=== PATIENT | male | born 1970 | race Caucasian/White ===

== ENCOUNTER → 2018-10-26 | Outpatient (CLI) | payer OTHER ==
[~2018-10-26] MED LIST: Cleocin HCl300 MG PO; DIVA500EC PO
== END | disposition home or self-care (01) ==
LOC: LAB 17:14 → LAB SHORT 17:14
DX: L08.9 Local infection of the skin and subcutaneous tissue, unspecified (principal); B07.8 Other viral warts
CPT/HCPCS: 87070; 87205

== ENCOUNTER → 2019-08-31 | Outpatient (CLI) | payer OTHER ==
[2019-09-04 16:07] LABS: CHLAMYDIA BY NAA Negative (Negative); GONOCOCCUS BY NAA Negative (Negative)
[2019-09-04 18:57] LABS: TRICH VAG BY NAA Negative
== END ==
LOC: LAB SHORT 18:49 → LAB EV 18:49
PROVIDERS: Nurse Practitioner
DX: R30.9 Painful micturition, unspecified (principal)
CPT/HCPCS: 87491; 87591; 87661

== ENCOUNTER 2020-06-11 21:59 | Emergency (ER) | payer OTHER ==
[~2020-06-11] VITALS: Ht 195.6 cm; Wt 97.5 kg
[2020-06-12] MEDS ORDERED: IBUP600 PO (00:14)
[2020-06-12] MEDS ORDERED: CYCL10 PO (00:14)
== END 2020-06-12 00:58 | disposition home or self-care (01) ==
LOC: ER 21:59
DX: S16.1XXA Strain of muscle, fascia and tendon at neck level, initial encounter (principal); G40.909 Epilepsy, unspecified, not intractable, without status epilepticus; Z88.1 Allergy status to other antibiotic agents; Z79.899 Other long term (current) drug therapy; R59.1 Generalized enlarged lymph nodes
CPT/HCPCS: 36415; 71045; 85025; 86308; 87081; 87430; 96372; 99283-25; J1885

== ENCOUNTER 2021-05-07 18:57 | Emergency (ER) | payer OTHER ==
[~2021-05-07] VITALS: Ht 193 cm; Wt 99.8 kg
[~2021-05-07 18:57] MED LIST changes: +CYCL10 PO; +IBUP600 PO
[2021-05-07] MEDS ORDERED: LIDO700A20 TOP (22:36)
[2021-05-07] MEDS ORDERED: CYCL10 PO (22:36)
== END 2021-05-07 22:43 | disposition home or self-care (01) ==
LOC: ER 18:57
DX: M25.552 Pain in left hip (principal); Z88.1 Allergy status to other antibiotic agents; Z79.899 Other long term (current) drug therapy; G40.909 Epilepsy, unspecified, not intractable, without status epilepticus
CPT/HCPCS: 72192; 73502; 96372; 99284-25; A9270; J1885

== ENCOUNTER 2024-07-01 18:39 | Emergency (ER) | payer OTHER ==
[~2024-07-01] VITALS: Ht 193 cm; Wt 90.7 kg
[~2024-07-01 18:39] MED LIST changes: +LIDO700A20 TOP; +ONDA4ODT MM
[2024-07-01] MEDS ORDERED: Ondansetron HCl 2 MG / ML 2ML Vial IV PRN (18:50)
[2024-07-01 19:00] LABS: BASOPHILS ABSOLUTE AUTO 0.04 K/mm3 (0.00-0.23); BASOPHILS PERCENT AUTO 0 % (0-2); EOSINOPHILS ABSOLUTE AUTO 0.18 K/mm3 (0.00-0.68); EOSINOPHILS PERCENT AUTO 1 % (0-6); Hematocrit 41.8 % (37.0-53.0); Hemoglobin 13.7 g/dL (13.5-17.5); IMMATURE GRAN ABSOLUTE AUTO 0.06 K/mm3 (0.00-0.10); IMMATURE GRAN PERCENT AUTO 1 % (0-1); LYMPHOCYTES ABSOLUTE AUTO 4.45 K/mm3 (0.84-5.20); LYMPHOCYTES PERCENT AUTO 36 % (21-46); MONOCYTES ABSOLUTE AUTO 1.03 K/mm3 (0.16-1.47); MONOCYTES PERCENT AUTO 8 % (4-13); Mean Corpuscular HGB Conc 32.8 g/dL (31.5-36.5); Mean Corpuscular Volume 88 fL (80-100); Mean Platelet Volume 9.2 fL (9.1-12.4); NEUTROPHILS ABSOLUTE AUTO 6.78 K/mm3 (1.96-9.15); NEUTROPHILS PERCENT AUTO 54 % (41-73); Platelet Count 416 K/mm3 (150-400); RDW Coefficient Variation 13.7 % (11.7-14.2); RDW Standard Deviation 43.9 fL (35.1-46.3); Red Blood Cell Count 4.73 M/mm3 (4.30-5.90); White Blood Cell Count 12.54 K/mm3 (4.00-11.30)
[2024-07-01] MEDS ORDERED: NS 1,000 ML IV SCH (19:05)
[2024-07-01 19:23] LABS: Albumin/Globulin Ratio 1.1 (0.8-1.8); Bilirubin, Total 0.2 mg/dL (0.1-1.0); Bun/Creatinine Ratio 31.7 (12.0-20.0); Calcium, Blood 9.8 mg/dL (8.5-10.1); Creatinine, Blood 0.92 mg/dL (0.60-1.20); Globulin, Blood 3.5 g/dL (2.2-4.0); Potassium, Blood 4.1 mmol/L (3.5-5.5); Total Protein, Blood 7.5 g/dL (6.4-8.2)
[2024-07-01] MEDS ORDERED: ONDA4ODT MM (20:36)
[2024-07-01] MEDS ORDERED: RX Prepack 2 Tabs Ondansetron ODT 4MG UD ONE (20:40)
[2024-07-01 21:03] VITALS: BP 108/63
[2024-07-01] MEDS ORDERED: Ondansetron HCl 2 MG / ML 2ML Vial ONE (21:09)
== END 2024-07-01 21:35 | disposition home or self-care (01) ==
LOC: ER 18:39
PROVIDERS: Emergency Medicine
DX: R11.2 Nausea with vomiting, unspecified (principal); E86.0 Dehydration; R07.89 Other chest pain; T50.905A Adverse effect of unspecified drugs, medicaments and biological substances, initial encounter; G40.909 Epilepsy, unspecified, not intractable, without status epilepticus; Z88.1 Allergy status to other antibiotic agents; Z79.2 Long term (current) use of antibiotics; Z79.899 Other long term (current) drug therapy
CPT/HCPCS: 71046; 80053; 83690; 84484; 85025; 93005; 93010; 96361; 96374; 96376; 99285-25; A9270; J2405; J7030